=== PATIENT | female | born 1985 | race Caucasian/White ===

== ENCOUNTER → 2023-11-14 14:57 | Outpatient (BNVA) | payer BC, SELFPAY | PROVIDERS: PCP Internal Medicine; Visit Provider Student in an Organized Health Care Education/Training Program ==

== ENCOUNTER → 2023-12-06 08:14 | Outpatient (BNVA) | payer BC, SELFPAY | PROVIDERS: PCP Internal Medicine; Visit Provider Student in an Organized Health Care Education/Training Program ==

== ENCOUNTER → 2023-12-11 13:14 | Outpatient (BNVA) | payer BC, SELFPAY | PROVIDERS: PCP Internal Medicine; Visit Provider Internal Medicine ==

== ENCOUNTER → 2024-03-02 11:10 | Outpatient (BNVA) | payer BC, SELFPAY | PROVIDERS: PCP Internal Medicine; Visit Provider Internal Medicine ==

== ENCOUNTER 2024-11-24 14:21 | Emergency (ER) | payer BC, SELFPAY ==
--- NOTE | ~2024-11-24 | XR_ITS ---
EXAMINATION: XR CHEST CLINICAL INFORMATION: shortness of breath COMPARISON: None available. TECHNIQUE: 2 views of the chest were obtained. FINDINGS: No consolidation, pleural effusion or pneumothorax. Cardiomediastinal silhouette size is normal. Osseous structures are intact. XR/XR chest 2V IMPRESSION: No acute airspace disease. Electronically signed by: Gigi Craft MD 11/24/2024 03:27 PM EDT RP
[2024-11-24 14:24] VITALS: BP 154/77; PULSE 90; RESP 19; TEMP 36.6; O2SAT 98; BMI 36.1
--- NOTE | 2024-11-24 14:26 | ED_ITS ---
HPI - General Adult General Chief complaint: General Medical Stated complaint: Blurred vision, SOB Related Data Home Medications ?Medication ?Instructions ?Recorded ?Confirmed omeprazole 20 mg capsule,delayed 20 mg PO DAILY 05/07/24 release Previous Rx's ?Medication ?Instructions ?Recorded ascorbate calcium (vitamin C) 500 500 mg PO DAILY 90 d ays #90 tabs 12/04/23 mg tablet ferrous sulfate 325 mg (65 mg 325 mg PO DAILY 90 days #90 tabs 12/04/23 iron) tablet hydroxychloroquine 200 mg tablet 200 mg PO BID #60 tab s 12/06/23 glecaprevir 100 mg-pibrentasvir 40 3 tab PO DAILY 8 we eks #168 tabs 03/04/24 mg tablet valacyclovir 1 gram tablet 1,000 mg PO DAILY #30 tabs 08/31/24 Allergies Allergy/AdvReac Type Severity Reaction Status Date / Time No Known Allergies Allergy Verified 11/24/24 14:25 [facility] Past Medical History Medical History (Updated 11/24/24 @ 21:05 by Adelaida Holguin CNP) Anemia Hx of rheumatoid arthritis Hearing loss in left ear Surgical History (Updated 07/06/24 @ 14:00 by Eileen Traore) Hx of colonoscopy History of esophagogastroduodenoscopy (EGD) History of ear surgery Family History Family History (System 07/06/24 @ 14:00 by Eileen Traore) Father Throat cancer Lung cancer Mother No problems noted. Social History Social History (System 07/06/24 @ 14:00 by Eileen Traore) Housing: House Are you a primary foster care therapist to a significant other at home: No Do you presently have visiting nurse or other home services: No Alcohol intake: current Alcohol intake frequency: holidays/special occasions only Alcohol type: wine Patient Tobacco Use Status: Never used Tobacco e-Cigarette/Vaping Use: Never Used Second Hand Smoke Exposure: No Advance Directives: No Advance Directives Information Provided: No Do you have a plan to hurt others: No Plan service: No Current occupational status: employed 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 Patient is a 39-year-old female who presents emergency department expressing concern for anemia requiring blood transfusion. Over the past few days she has been experiencing difficulty breathing, blurred vision, Also having intermittent headaches, this has occurred in the past when she has required a blood transfusion due to low iron. Reports she was last transfused 6 months ago. She has been taking iron supplementation up until 3 weeks ago when she was feeling better so she stopped it restarted again 3 days ago. Plan: Serum labs, viral serologies, UA Reevaluation(s) Reevaluation #1: LWCT Medical Decision Making Lab Data 11/24/24 15:00 11/24/24 15:00 Labs: Lab Results 11/24/24 11/24/24 Range/Units 15:00 15:29 WBC 5.7 (4.8-10.8) X10*3/uL RBC 5.57 H (4.20-5.50) X10*6/uL Hgb 14.6 D (12.0-16.0) g/dl Hct 44.2 (37.0-47.0) % MCV 79.4 L (80.0-98.0) fL MCH 26.2 L (27.0-33.0) pg MCHC 33.0 (31.0-35.0) g/dl RDW 14.0 (11.0-16.0) % Plt Count 193 D (160-400) X10*3/uL MPV Not Reportable Immature Gran % (Auto) 0.7 H (0.0-0.4) % Neut % (Auto) 62.4 (45-73) % Lymph % (Auto) 28.4 (20-40) % [place] % (Auto) 6.0 (2-11) % Eos % (Auto) 1.8 (0-4) % Baso % (Auto) 0.7 (0-2) % Lymph # (Auto) 1.6 (1.2-4.9) X10*3/uL [place] # (Auto) 0.3 (0.1-1.2) X10*3/uL Eos # (Auto) 0.1 (0.0-0.4) X10*3/uL Baso # (Auto) 0.0 (0.0-0.2) X10*3/uL Abs Immat Gran (auto) 0.04 H (0.00-0.03) X10*3/uL Absolute Neuts (auto) 3.5 (2.0-8.3) x10*3/uL Absolute Nucleated RBC 0.000 (0.0-0.012) X10*3/uL Nucleated RBC % (auto) 0.0 (0.0-0.2) /100WBC Smear Tech's Comments VERIFIED Sodium 138 (135-145) mmol/L Potassium 4.2 (3.3-5.1) mmol/L Chloride 107 (96-108) mmol/L Carbon Dioxide 20 L (22-29) mmol/L Anion Gap 15 (12-20) BUN 16 (9-16) mg/dL Creatinine 0.88 (0.5-1.4) mg/dL Estim Creat Clear Calc 83.2 Estimated GFR > 60 Random Glucose 86 (60-115) mg/dL Calcium 9.5 (8.4-10.2) mg/dL Magnesium 2.2 (1.6-2.6) mg/dL Total Bilirubin 0.5 (0.0-1.0) mg/dL AST 35 H (5-31) U/L ALT 37 H (0-31) U/L Alkaline Phosphatase 63 (39-117) U/L Total Protein 8.0 (6.5-8.0) g/dL Albumin 4.2 (3.5-5.0) g/dL Urine Color Yellow Urine Appearance Clear Urine pH 7.0 (5.0-9.0) Ur Specific [place] <= 1.005 (1.005-1.025) Urine Protein Negative (Neg-Trace) mg/dL Urine Glucose (UA) Negative (Negative) mg/dL Urine Ketones Negative (Negative) mg/dL Urine Blood Negative (Negative) Urine Nitrite Negative (Negative) Ur Leukocyte Esterase Negative (Negative) Urine Test NEGATIVE (NEGATIVE) Influenza Type A (PCR) NEGATIVE (Negative) Influenza Type B (PCR) NEGATIVE (Negative) RSV RNA Qual (PCR) NEGATIVE (Negative) SARS-CoV-2 RNA (RT-PCR) NEGATIVE (Negative) Discharge Plan Discharge Clinical Impression: Diagnosis unknown Patient Disposition: Left W/O Completing Treatment Prescriptions: No Action glecaprevir-pibrentasvir 100-40 mg tablet 3 tab PO DAILY 56 Days Qty: 168 0RF Rx Instructions: must administer with a meal/food valacyclovir 1 gram tablet 1,000 mg PO DAILY Qty: 30 0RF Rx Instructions: Use p.r.n. for 3-5 days for outbreaks. ferrous sulfate 325 mg (65 mg iron) tablet 325 mg PO DAILY 90 Days Qty: 90 1RF ascorbate calcium (vitamin C) 500 mg tablet 500 mg PO DAILY 90 Days Qty: 90 0RF omeprazole 20 mg capsule,delayed release(DR/EC) 20 mg PO DAILY hydroxychloroquine 200 mg tablet 200 mg PO BID Qty: 60 2RF Discharge Date/Time: 11/24/24 19:56
[2024-11-24 15:26] LABS: Hematocrit 44.2 % (37.0-47.0); Hemoglobin 14.6 g/dl (12.0-16.0); Imm Gran Abs Auto 0.04 X10*3/uL (0.00-0.03); Imm Gran Pct Auto 0.7 % (0.0-0.4); Lymphocytes Absolute Auto 1.6 X10*3/uL (1.2-4.9); MANUAL DIFF FLAG SCAN; Mean Corpuscular HGB Conc 33.0 g/dl (31.0-35.0); Mean Corpuscular Hemoglobin 26.2 pg (27.0-33.0); Mean Corpuscular Volume 79.4 fL (80.0-98.0); NRBC Abs Auto 0.000 X10*3/uL (0.0-0.012); NRBC Pct Auto 0.0 /100WBC (0.0-0.2); PLT CLUMP 1; Red Blood Count 5.57 X10*6/uL (4.20-5.50); SCAN SMEAR FLAG 1
[2024-11-24 15:44] LABS: Alanine Aminotransferase 37 U/L (0-31); Albumin Level 4.2 g/dL (3.5-5.0); Alkaline Phosphatase 63 U/L (39-117); Anion Gap 15 (12-20); Aspartate Amino Transferase 35 U/L (5-31); Blood Urea Nitrogen 16 mg/dL (9-16); Calcium 9.5 mg/dL (8.4-10.2); Carbon Dioxide 20 mmol/L (22-29); Chloride 107 mmol/L (96-108); Creatinine Clr Calc Pharmacy 83.2; Estimated Glomerular Filt Rate > 60; Magnesium 2.2 mg/dL (1.6-2.6); Potassium 4.2 mmol/L (3.3-5.1); Sodium 138 mmol/L (135-145); Total Protein 8.0 g/dL (6.5-8.0)
[2024-11-24 15:44] LABS: Appearance Urine Clear; Glucose Urine UA Negative (Negative); PH 7.0 (5.0-9.0); Specific Gravity - Urine <= 1.005 (1.005-1.025); UPreg QC Valid YES
[2024-11-24 15:49] LABS: Platelet Count 193 X10*3/uL (160-400)
[2024-11-24 15:54] LABS: White Blood Count 5.7 X10*3/uL (4.8-10.8)
[2024-11-24 16:02] LABS: Resp Syncy Virus RNA Qual PCR NEGATIVE (Negative); SARS COV2 PCR INHOUSE NEGATIVE (Negative)
--- NOTE | 2024-11-24 19:39 | PC.NURSE ---
No answer in waiting room [id number]
--- OUTSIDE RECORDS SUMMARY | 2024-11-24 19:59 | XMS_ITS | Data Portability ---
Author Organization [place] - [facility], Allergy Address [address] [address] Care Team Providers Care Managed Care Director Name Role Phone BENI CLIFFORD Primary Care Provider [phone] Assessment Encounter Date Assessment Date Assessment LastModified by Organization Details LastModified Time 12/03/2023 12/03/2023 Patient with history of bilateral cholesteatoma and underlying eustachian tube dysfunction who has been lost to follow-up for the last 6 years. She has developed recurrent cholesteatoma bilaterally. The right cholesteatoma is a retraction pocket around the superior margin of the cartilage graft with dry squamous epithelial debris. The left cholesteatoma is currently infected and appears to be breaking down the posterior canal wall. There was a large granulation polyp which was biopsied today and sent for pathologic examination. Patient will be placed on topical TobraDex drops in the left ear twice a day. I will order CAT scan of the temporal bones to assess the extent and depth of both of these recurrent cholesteatomas. We discussed the likelihood that she will need bilateral modified radical mastoidectomies to remove the recurrent disease and prevent future recurrence. Not available 12/03/2023 16:30:01 12/24/2023 12/24/2023 Patient with history of bilateral cholesteatoma and underlying eustachian tube dysfunction who has been lost to follow-up for the last 6 years. She has developed recurrent cholesteatoma bilaterally. The right cholesteatoma is a retraction pocket around the superior margin of the cartilage graft with dry squamous epithelial debris. The left cholesteatoma is breaking down the posterior canal wall and appears to be eroding into the horizontal semicircular canal. Today I spoke with the patient at length, reviewing her physical findings and radiologic findings. I have recommended left modified radical mastoidectomy with tympanoplasty and possible ossiculoplasty for the excision of the cholesteatoma and reconstruction of the tympanic membrane. I also recommend concurrent meatoplasty which will enlarge the ear canal in order to facilitate postoperative mastoid cavity care and maintenance. We discussed the risks, benefits, and complications associated with this surgery including the risks of bleeding, infection, persistent tympanic membrane perforation, temporary or permanent facial nerve paralysis or paresis, cerebrospinal fluid leak, encephalocele, temporary or permanent tinnitus, temporary or permanent balance disturbance. We also discussed the fact that the hearing may be significantly reduced postoperatively, which will most likely be temporary but may also be permanent. Patient will have a one-week postoperative visit with physician legal support assistant to exchange the Ambrus ear packing. Patient will have a 2 week postoperative visit with me for mastoid cavity cleaning and examination. After full discussion, the patient would like to proceed with surgery. I have provided patient with the contact information for my maintenance scheduler. We will begin the scheduling process and see the patient back at the time of surgery. Patient will not require medical clearance from their primary care provider preoperatively. We did discuss the fact that she does have erosion of her lateral semicircular canal, so I warned her about the likelihood of postoperative dizziness which may be persistent for period of time during the healing process. [email or web address] Not available 12/24/2023 09:21:24 Plan of Treatment Reminders Order Date Submit Date Provider Last Modified By Organization Details Last Modified Time Details Appointments None recorded. Lab surgical pathology study 2023 024 RANCHO [facility] (Centralized Electronic Ordering - All Locations), Patient Can Go To The Location Of Their Choice, [id number] 19:14:20 Referral None recorded. Procedures None recorded. Surgeries mastoidecto my, modified radical (SURG) 2023 024 9 Not available 09:27:[address], temporal bone, w/o contrast - Patient will be returning to office at the end of November, please have scan authorized for that visit 2023 024 Not available 14:55:52 Medication Orders tobramycin 0.3 %-dexametha sone 0.1 % eye drops,suspe nsion [address] [facility], [address] [facility], [place], [address], 16:23:14 Patient TargetsNo targets recorded. Patient InstructionsNo instructions recorded. Reason for Referral None Reported. Results Created Date Observation Date Name Description Value Unit Range Abnormal Flag Note LastModifiedBy Organization Detail LastModifiedTime 12/24/19 audio gram No observ ation record ed. [email or web address] Not Available 2023 15:28:44 02/11/2012/24/2023 CT, tempo ral bone, w/o contr ast No observ ation record ed. [email or web address] [facility] [address], [place], [address], 02/12/2024 09:32:56 Result Notes None recorded. 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 57134913538 50383 Completed 201511/29/2023 Choleste atoma of attic, right ear; Note: Date Diagnose d: 6 4:28 PM (H71.01) Not Available [facility] 4 03:02:07 Otorrhea of left ear 08764268514 72006 Active 2015 Otorrhea , left ear; Note: Date Diagnose d: 6 3:47 PM (H92.12) Not Available [facility] 4 03:02:08 Choleste atoma of left mastoid process 63515986858 28083 Completed 201511/29/2023 Choleste atoma of mastoid, left ear; Note: Date Diagnose d: 6 10:15 AM (H71.22) Not Available [facility] 4 03:02:06 Conducti ve hearing loss, bilatera l 305804938 Active 2015 Conducti ve hearing loss, bilatera l; Note: Date Diagnose d: 6 9:34 AM (H90.0) Not Available [facility] 4 03:02:06 Postoper ative follow-u p visit Active 2015 Post op; Note: Date Diagnose d: 6 10:49 AM (V67.00) Not Available [facility] 4 03:02:07 Perforat ion of tympanic membrane 17363987 Active 2015 Perforat ion of tympanic membrane ; Note: Date Diagnose d: 6 10:49 AM (384.20) Not Available [facility] 4 03:02:08 Otorrhea of right ear 82646132425 88815 Active 2015 Otorrhea , right ear; Note: Date Diagnose d: 02/14/20 16 11:48 AM (H92.11) Not Available [facility] 4 03:02:07 Cellulit is of left external ear 68347238800 16921 Completed 201611/29/2023 Cellulit is of left external ear; Note: Date Diagnose d: 08/02/2016 1:08 PM (H60.12) Not Available [facility] 4 03:02:07 Granulom atous disorder of the skin and subcutan eous tissue 468444261 Completed 201611/29/2023 Granulom atous disorder of the skin and subcutan eous tissue, unspecif ied; Note: Date Diagnose d: 7 10:59 AM (L92.9) Not Available [facility] 4 03:02:06 Adhesive middle ear disease 1089228 Active 2016 Adhesive left middle ear disease; Note: Date Diagnose d: 7 4:15 PM (H74.12) Not Available [facility] 4 03:02:06 Partial loss of ear ossicles 99597128 Active 2016 Partial loss of ear ossicles , right ear; Note: Date Diagnose d: 7 4:24 PM (H74.321 ) Partia l loss of ear ossicles , left ear; Note: Date Diagnose d: 6 1:47 PM (H74.322 ) ; Start Date : 09/16/19 16 Not Available [facility] 4 03:02:07 Follow-u p visit Active 2017 Medical surveill ance followin g complete d treatmen t; Note: Date Diagnose d: 8 2:11 PM (Z09) Encoun ter for follow-u p examinat ion after complete d treatmen t for conditio ns other than malignan t neoplasm ; Note: Date Diagnose d: 08/03/2016 9:36 AM (Z09) ; Start Date : 08/04/19 17 Medic al surveill ance followin g complete d treatmen t; Note: Date Diagnose d: 6 10:51 AM (Z09) ; Start Date : 09/23/19 16 Not Available [facility] 4 03:02:06 Polyp of middle ear 73646572 Active 2023 JONO LEAL MD [address] [place] [address], [place], [address] , 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 - [facility] [place] 4 16:23:22 Perforat ion of tympanic membrane 98038489 Active 2023 JONO LEAL MD [address] [place] [address], [facility] [address] , 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 - [facility] [place] 4 09:21:59 Conducti ve hearing loss 71431222 Active 2023 Valarie beckham [place] - [facility] [place] 4 09:45:29 Problem Notes None recorded. Procedures Surgical History Date Name Laterality Status Provider Name and Address Organization Details Recorded Time 12/24/[address] temporal bones - Xoran completed JONO LEAL MD [address] [facility],[place] [address], [place], [address], [facility] - [facility] [place] 12/24/2023 08:58:38 12/24/19 24 Comp Audio with Tymps - 51004 & 83194 completed Valarie Adams [place] - [facility] [place] 12/24/2023 09:45:04 12/03/19 24 Debridement of Ear canal right completed JONO LEAL MD [address] [facility],[place] [address], [place], [address], [facility] - [facility] [place] 12/03/2023 16:35:59 12/03/19 24 Biopsy Ear canal left completed JONO LEAL MD [address] [facility],[address], [address], [facility] - [facility] [place] 12/03/2023 16:36:24 Myringotomy Tube Placement completed Beni Ulloa [place] - [facility] 12/03/2023 15:59:25 mastoidectomy completed Beni Ulloa [place] - [facility] [place] 12/03/2023 15:59:33 Imaging Results None recorded. Procedure Notes None recorded. Medical Equipment None Reported. Allergies No known drug allergies Medications Name Sig Start Date Stop Date Status Note LastModified by Organization Details LastModified Time ibuprofen 800 mg tablet 2015 active Medicati on ID: [id number] P rescribe d By Name: KAMALA Cuevas nd Name: ibuprofe n Send Method: E-Prescr ibed Sub s Allowed: subs OK Specjulian al Instruct ion: take 1 po Q8 hours as needed for pain Med icationG enericNa me: ibuprofe n Not Available Not Available Not Available valacyclo vir 1 gram tablet TAKE 1 TABLET BY MOUTH ONCE DAILY NEEDED FOR 3 TO 5 DAYS FOR OUTBREAK S 12/02 completed Not Available Not Available Not Available Ciloxan 0.3 % eye drops 12/02 completed Medicati on ID: [id number] P rescribe d By Name: KAMALA Cuevsa nd Name: Ciloxan Send Method: E-Prescr ibed Sub s Allowed: subs OK Speci al Instruct ion: Instill 4 drops twice a day into affected ear for 10 days Med icationG enericNa me: Ciloxan Not Available Not Available Not Available ciproflox acin 500 mg tablet Take 1 tablet by mouth twice a day 08/12 completed Medicati on ID: [id number] D uration Value: 10 Prescri bed By Name: Araseli Cardona nd Name: ciproflo xacin HCl Send Method: E-Prescr ibed Sub s Allowed: subs OK Medic ationGen ericName : ciproflo xacin HCl Not Available Not Available Not Available methadone 40 mg soluble tablet 85 2015 active Medicati on ID: [id number] B rand Name: methadon e Send Method: E-Prescr ibed Sub s Allowed: subs OK Medic ationGen ericName : methadon e Not Available Not Available Not Available ferrous sulfate 325 mg (65 mg iron) tablet TAKE 1 TABLET BY MOUTH EVERY OTHER DAY active Not Available Not Available No t Available gabapenti n 300 mg capsule active Medicati on ID: [id number] D uration Value: 30 Brand Name: gabapent in Send Method: E-Prescr ibed Sub s Allowed: subs OK Medic ationGen ericName : gabapent in Not Available Not Available Not Available omeprazol e 20 mg capsule,d elayed release TAKE 1 CAPSULE BY MOUTH TWICE DAILY 12/02 completed Not Available Not Available Not Available hydroxych loroquine 200 mg tablet active Not Available Not Available Not Available [place] 5 mg-325 mg tablet 1-2 tablet by mouth 2016 active Medicati on ID: [id number] D uration Value: 7 Prescri bed By Name: Araseli Cardona nd Name: Aleksandar Se purdy Method: E-Prescr ibed Sub s Allowed: subs OK Medic ationGen ericName : [place] Not Available Not Available Not Available amoxicill in 875 mg-potass ium clavulana te 125 mg tablet TAKE 1 TABLET BY MOUTH TWICE DAILY FOR 7 DAYS 12/02 completed Not Available Not Available Not Available tobramyci n 0.3 %-dexamet hasone 0.1 % eye drops,mesha pension INSTILL 4 DROPS INTO AFFECTED EAR(S) TWICE DAILY FOR 14 DAYS active Not Available Not Available No t Available neomycin- polymyxin -hydrocor t 3.5 mg-10,000 unit/mL-1 % ear drops,mesha p INSTILL2 DROPS INTO LEFT EAR 4 TIMES DAILY FOR 7 TO 10 DAYS. SHAKE WELL BEFORE USE. 12/02 completed Not Available Not Available Not Available Ciprodex 0.3 %-0.1 % ear drops,mesha pension 4 drop 12/02 completed Medicati on ID: [id number] D uration Value: 14 Prescri bed By Name: Araseli Cardona nd Name: Ciprodex Send Method: E-Prescr ibed Sub s Allowed: subs OK Medic ationGen ericName : Ciprodex Not Available Not Available Not Available Valtrex 2015 active Medicati on ID: [id number] B jesica Name: Valtrex Send Method: E-Prescr ibed Sub s Allowed: subs OK Medic ationGen ericName : Valtrex Not Available Not Available Not Available peg 3350-elec trolytes 236 gram-22.7 4 gram-6.74 gram-5.86 gram solution active Not Available Not Available Not Available Vitals Date Recorded Body height Body mass index (BMI) Body weight Provider Name and Address Organization Details Last Updated DateTime 12/03/2023 152.4 cm 35.2 kg/m2 98792.63 g Beni Ulloa [place] - [facility] 12/03/2023 16:01:22 Date Recorded Body height Body mass index (BMI) Body weight Provider Name and Address Organization Details Last Updated DateTime 12/24/2023 152.4 cm 35.2 kg/m2 22613.63 g Shelly Colón [place] - [facility] 12/24/2023 08:41:41 Social History None recorded. Functional Status None recorded. Mental Status None recorded. Family History Nothing Reported. Medical History Condition Response Anemia Y Migraines Y Arthritis Y Gynecological HistoryNo gynecological history recorded. Obstetrics History GPAL:G 0 P 0 0 0 0 Past Encounters Encounter ID Performer Location Encounter Start Date Encounter Closed Date Diagnosis/Indication Diagnosis SNOMED-CT Code Diagnosis ICD10 Code Diagnosis Note [id number] JONO LEAL MD [facility] [address] [address] 12/03/2023 15:48:31 12/03/2023 16:26:20 Polyp of middle ear 49626850 H74.42 Otorrhea of left ear 723 1419132 126397 H92.12 Recurrent cholesteatoma of mastoid cavity 999848652 H71.23 [id number] JONO LEAL MD [facility] [address] [address] 12/24/2023 08:35:34 12/24/2023 10:01:15 Otorrhea of left ear 2758045821 139125 H92.12 The majority of the otorrhea in the left ear has subsided, recommend using TobraDex drops once a day until the day of surgery. 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 Tympanomet ry:Right Ear:Type B with large volumeLeft Ear:Type C Audiometri c testing reviewed with patient. She has significan t conductive hearing loss bilaterall y, fortunatel y no signs of sensorineu ral hearing damage at this point. I have recommende d that she proceed with getting a hearing aid for the right ear now to remedy her significan t hearing loss while she is having the left-sided ear surgery done. She would like to learn more about this so we will set her up for a hearing aid evaluation . Will start with amplificat ion for the right ear only with the possibilit y of needing a hearing aid in the left ear in the future. 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 Demos used: [employer] Patient motivation : She would love to be able to hear better. Her has noticed a decline in her quality of life without them. She had BTEs in the past and should go that route again as she reports frequent draining ears. Purchased? No Her health insurance benefit is better in network. So she is going to call her insurance and look around to see if anyone can bill the insurance for her. Her previous aids were from [email or web address]Dallin tate is welcome to come back here and she is aware that she can apply for Care Credit to split up the payments. Health Concerns Section Related Observation LastModified by Organization Detai ls LastModified Time None Recorded Concern Status LastModified by Organization Details LastModified Time None Recorded Advance Directives Directive None Recorded Payers Insurance Date Sequence Insurance Name Policy Number Policy Wolf Covered Member ID Wolf Member ID Guarantor Name 02/18/2024 1 LAURA (PPO) [id number] Bella Magaña [id number] Bella Magaña OBGyn Episode No OBEpisode recorded.
== END 2024-11-24 19:56 | disposition left against medical advice (07) ==
LOC: HO.ED 19:58
PROVIDERS: Nurse Practitioner Family; Emergency Provider Emergency Medicine; PCP Internal Medicine
DX: R06.02 Shortness of breath (principal); H53.8 Other visual disturbances; Z03.818 Encounter for observation for suspected exposure to other biological agents ruled out; D64.9 Anemia, unspecified; R05.3 Chronic cough
CPT/HCPCS: 36415; 71046; 80053; 81003; 81025; 83735; 85025; 87637; 99281; 99282

== ENCOUNTER → 2024-11-24 14:25 | Outpatient (BNV) | payer BC, SELFPAY | PROVIDERS: PCP Internal Medicine; Visit Provider Radiology Diagnostic Radiology | DX: R06.02 Shortness of breath (principal) | CPT/HCPCS: 71046 ==

== ENCOUNTER 2025-02-24 08:18 | Outpatient (AMB) | payer BC, SELFPAY ==
[2025-02-24 08:24] VITALS: BP 124/62; PULSE 84; RESP 18; TEMP 36.2; O2SAT 97; BMI 37.2
--- NOTE | 2025-02-24 08:24 | A.OFFPC_ITS ---
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 Required: No Accompanied by: Self / Same As Patient Allergies No Known Allergies Allergy (Verified 02/24/25 08:53) Medication List - Last Reconciled 02/24/25 by Ginna Segal MD ascorbate calcium (vitamin C) 500 mg PO DAILY 90 days ferrous sulfate 325 mg PO DAILY 90 days omeprazole 20 mg PO DAILY valacyclovir 1,000 mg PO DAILY Tobacco use date assessed: 02/24/25 Dental Screening Dental Screen Date: 02/24/25 Did you have a dental visit in the last 12 months?: No Did you have a dental problem in the last 6 months where you did not have access to dental care?: No Was dental information given to patient?: No HPI HPI Comments History of Present Illness Details The patient is a 39-year-old female presenting with a chronic cough. The cough has been present for several months, since at least October, and she frequently feels the need to clear her throat. She reports the cough is productive of clear, thick sputum with no color. A chest X-ray performed in October was normal. The patient suspects allergies are the cause and has tried Claritin and Deonna, which seemed to worsen her symptoms. She has a history of receiving allergy shots for about a year as a child due to extensive allergies to various substances, including molds and danders, which were identified via a prick test. Her current medications include vitamin C, furosulfate, valacyclovir daily, and omeprazole as needed for heartburn. She has no known drug allergies. [facility] Medical History (Updated 02/24/25 @ 09:32 by Ginna Segal MD) Anemia Hx of rheumatoid arthritis Hearing loss in left ear Surgical History Hx of colonoscopy History of esophagogastroduodenoscopy (EGD) History of ear surgery Family History Father Throat cancer Lung cancer Mother No problems noted. 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 1. Little interest or pleasure in doing things: not at all 2. Feeling down, depressed, or hopeless: not at all 3. Trouble falling or staying asleep, or sleeping too much: not at all 4. Feeling tired or having little energy: not at all 5. Poor appetite or overeating: not at all 6. Feeling bad about yourself - or that you are a failure or have let yourself or your family down: not at all 7. Trouble concentrating on things, such as reading the newspaper or watching television: not at all 8. Moving or speaking so slowly that other people could have noticed. Or the opposite - being so fidgety or restless that you have been moving around a lot more than usual: not at all 9. Thoughts that you would be better off or of hurting yourself in some way: not at all Total score: 0 Depression Screening Interpretation: Negative Depression Screening Done: Yes 61358 - PHQ-9 Billing: Yes Source: Developed by Drs. Tae Murrell, Vania Moulton, Be Mccormack and colleagues, with an educational anabelle from [employer]. Thrive Questionnaire Date Thrive assessed: 05/07/24 I am a: Patient What is your living situation today?: I have a steady place to live Within the past 12 months, did the food you bought not last and you didn't have the money to get more?: Never true Within the past 12 months, did you worry whether your food would run out before you got money to buy more?: Never true Do you have trouble paying for medicines?: No Do you have trouble getting transportation to medical appointments?: No Do you have trouble paying your heating and electricity bill?: No Do you have trouble taking care of your child, family member or friend?: No Do you have trouble with day-to-day activities such as bathing, preparing meals, shopping, managing finances, etc.?: No Are you currently unemployed and looking for a job?: No Are you interested in more education?: No Please select the resources that you would like help with: None Currently or been in a relationship where the following occur: No concerns reported THRIVE Score: 0 AUDIT C Alcohol Use Questionnaire (AUDIT-C) 1. How often do you have a drink containing alcohol?: Monthly or less 2. How many drinks containing alcohol do you have on a typical day when you are drinking?: 1 or 2 3. How often do you have six or more drinks on one occasion?: Never Total Score: 1 EJ-7 AMB Questionnaire EJ-7 Date EJ - 7 assessed: 05/07/24 Feeling nervous, anxious, or on edge: 0 = Not at all Not being able to stop or control worryin = Not at all Worrying too much about different things: 0 = Not at all Trouble relaxin = Not at all Being so restless that it is hard to sit still: 0 = Not at all Becoming easily annoyed or irritable: 0 = Not at all Feeling afraid as if something awful might happen: 0 = Not at all Total EJ-7 score (0-4 normal; 5-9 mild; 10-14 moderate; 15-21 severe): 0 Source: Developed by Drs. Tae Murrell, Vania Moulton, Be Mccormack and colleagues, with an educational anabelle from [employer]. EJ-7 Assessment Billing EJ-7 Assessment Tool: EJ-7 Assessment 40854 Review of Systems Const All systems reviewed & are unremarkable except as noted in HPI and below Card Denies chest pain at rest, Denies chest pain with activity, Denies edema, Denies irregular heart rhythm, Denies claudication, Denies dyspnea, Denies dyspnea on exertion, Denies orthopnea, Denies paroxysmal nocturnal dyspnea and Denies slow heart rate Resp Denies cough, Denies dyspnea and Denies dyspnea on exertion Physical exam (Primary Care) Vital Signs: Last Vital Signs Temp 97.1 F 02/24/25 08:24 Pulse 84 02/24/25 08:24 Resp 18 02/24/25 08:24 BP 124/62 02/24/25 08:24 Pulse Ox 97 02/24/25 08:24 Oxygen Delivery Method Room Air 02/24/25 08:24 BMI result Body Mass Index 37.2 BMI Assessment/Plan discussion: High BMI High, discussed plan: lifestyle, weight reduction, dietary and physical activity Tobacco/Smoking Status: Tobacco use Status Tobacco use date assessed 02/24/25 02/24/25 08:32 Patient Tobacco Use Status Never used Tobacco 02/24/25 08:32 e-Cigarette/Vaping Use Never Used 02/24/25 08:32 PHQ-9: PHQ-9 Score PHQ-9: Total score 0 02/24/25 08:32 Depression Screening Interpretation: Negative Thrive Assessment: Date of Thrive Assessment Date Thrive assessed 05/07/24 02/24/25 08:32 Currently or been in a relationship where the following occur: No concerns reported Resp Effort & Inspection: normal respiratory effort Auscultation: clear to auscultation bilaterally Cardio Jugular venous distension: no JVD Rate: regular rate Rhythm: regular rhythm Heart sounds: S1 normal heart sound present and S2 normal heart sound present Extrem General: Yes full ROM Coding Level of Care Code Est Pt Level 3 (58084) Diagnoses Chronic cough R05.3 Allergies T78.40XA Chronic GERD K21.9 Additional Codes PHQ-9 - 16815 - PHQ-9 Billing: Yes ([id number]) EJ-7 Assessment Billing - EJ-7 Assessment Tool: EJ-7 Assessment 18323 ([id number]) Time Spent (min) 19 Assessment & Plan Assessment & Plan (1) Chronic cough: Code(s): R05.3 - Chronic cough Category: Medical (2) Allergies: Code(s): T78.40XA - Allergy, unspecified, initial encounter Category: Medical (3) Chronic GERD: Code(s): K21.9 - Gastro-esophageal reflux disease without esophagitis Category: Medical Plan Plan 1. Chronic Cough The patient's chronic cough is suspected to be secondary to allergic rhinitis and post-nasal drainage, especially given her normal chest x-ray in October. A trial of Levocetirizine daily, with the option for twice a day dosing, and Montelukast at bedtime was initiated. Famotidine was also prescribed due to its antihistamine properties. The patient was counseled on the potential risk of depression with Montelukast and advised to discontinue it if mood changes occur. A referral will be placed to an business office technology instructor for further evaluation and testing. 2. Allergic Rhinitis Given the patient's symptoms and history of childhood allergies, allergic rhinitis is a strong consideration. Previous trials of Claritin and Deonna were ineffective. The plan includes starting Levocetirizine, Montelukast, and Famotidine. She was advised to stop all allergy medications one week prior to her business office technology instructor appointment. 3. Gastroesophageal Reflux Disease The patient uses omeprazole as needed for heartburn. She was advised that she can stop taking omeprazole while on the prescribed famotidine, as famotidine also treats heartburn. 4. Health Maintenance The patient is scheduled for a physical exam in April. Blood work, including checks for anemia and cholesterol, will be ordered for April. The patient declined the flu shot today. Follow-up is scheduled for April. Orders: Orders Vitamin D 25-OH Total Today E55.9 - Vitamin D deficiency, unspecified Lipid Panel Today E78.5 - Hyperlipidemia, unspecified Comprehensive [place]. Panel Fast Today R05.3 - Chronic cough Complete Blood Count Auto Diff Today D64.9 - Anemia, unspecified Vitamin B12 and Folate Today E53.8 - Deficiency of other specified B group vitamins IRON PROFILE Today D64.9 - Anemia, unspecified Referrals Allergy & Immunology Referral T78.40XA - Allergy, unspecified, initial encounter Medications: New levocetirizine 5 mg PO DAILY PRN 30 tabs 6RF allergy symptoms 30 days famotidine 40 mg PO BID 180 tabs 1RF 90 days
== END 2025-02-24 09:03 | disposition home or self-care (01) ==
LOC: HO.HMCH 08:19
PROVIDERS: PCP Internal Medicine; Visit Provider Internal Medicine
DX: R05.3 Chronic cough (principal); T78.40XA Allergy, unspecified, initial encounter; K21.9 Gastro-esophageal reflux disease without esophagitis

== ENCOUNTER → 2025-02-24 08:18 | Outpatient (BNVA) | payer BC, SELFPAY | PROVIDERS: PCP Internal Medicine; Visit Provider Internal Medicine | DX: R05.3 Chronic cough (principal); K21.9 Gastro-esophageal reflux disease without esophagitis; Z91.09 Other allergy status, other than to drugs and biological substances | CPT/HCPCS: 96127 ==